=== PATIENT | male | born 1960 | race Caucasian/White ===

== ENCOUNTER → 2017-02-17 | Outpatient (CLI) | payer OTHER | LOC: LAB 16:44 | PROVIDERS: ATTEND Family Medicine | DX: R60.0 Localized edema (principal); Z72.0 Tobacco use | CPT/HCPCS: 36415; 85379 ==

== ENCOUNTER → 2017-02-26 | Outpatient (CLI) | payer OTHER ==
--- NOTE | 2017-02-26 19:18 | DI ---
HISTORY: Right lower extremity swelling. COMPARISON: None available. TECHNIQUE: Ultrasound of the right lower extremity was performed using grayscale, color Doppler, and spectral Doppler imaging techniques. The common femoral, superficial femoral, popliteal, and greater saphenous veins were evaluated. FINDINGS: Spectral Doppler demonstrates normal respiratory variation. There is an appropriate respo nse to compression maneuvers. There is no evidence of right lower extremity intraluminal thrombus. There is mild lateral soft tissues edema, without evidence of discrete collection. IMPRESSION: 1. No evidence of deep venous thrombosis in the right lower extremity. 2. Mild to moderate soft tissue edema. No discrete collection. NOTE: The interpreting Radiologist was not present at the time of ultrasound interrogation. NOTIFICATION: The above findings were phoned to Leonel Diggs in the ER Department on 02/26/2017 at 9:3 2pm EST.
== END ==
LOC: US 17:19
PROVIDERS: ATTEND Physician Assistant
DX: M79.661 Pain in right lower leg (principal); M79.89 Other specified soft tissue disorders
CPT/HCPCS: 93971